=== PATIENT | female | born 1970 | race Asian ===

== ENCOUNTER 2021-02-23 22:27 | Emergency (ER) | payer OTHER ==
[~2021-02-23] VITALS: Ht 157.5 cm; Wt 55.0 kg
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
--- NOTE | 2021-02-23 22:55 | NUR ---
PT PLACED ON L2K BY ABDI
[2021-02-23] MEDS ORDERED: PLEASE ENTER ALLERGIES MC SCH (23:00)
[2021-02-23] MEDS ORDERED: LORazepam 1MG TABLET PO ONE (23:00)
[2021-02-23 23:18] LABS: AMPHETAMINE SCREEN, URINE Negative (Negative); BARBITURATE SCREEN, URINE Negative (Negative); BENZODIAZEPINE SCREEN, URINE Negative (Negative); CANNABINOID SCREEN, URINE Negative (Negative); COCAINE SCREEN, URINE Negative (Negative); METHADONE SCREEN, URINE Negative (Negative); OPIATE SCREEN, URINE Negative (Negative)
[2021-02-23 23:27] LABS: BASOPHILS % (AUTO) 1 % (0-1); EOSINOPHILS % (AUTO) 1 % (1-7); LYMPHOCYTES % (AUTO) 15 % (22-44); MEAN CORPUSCULAR HEMOGLOBIN 32.7 pg (27.0-34.8); MEAN CORPUSCULAR HGB CONC 35.5 g/dL (32.4-35.8); MEAN PLATELET VOLUME 6.7 fL (7.4-10.4); MONOCYTES % (AUTO) 9 % (2-9); NEUTROPHILS % (AUTO) 75 % (42-75); PLATELET COUNT 311 x10^3/uL (130-400); RED BLOOD COUNT 4.63 x10^6/uL (3.82-5.3); RED CELL DISTRIBUTION WIDTH 13.7 % (9.6-15.2)
[2021-02-23 23:33] LABS: ALBUMIN 3.9 g/dL (3.4-5.0); ANION GAP 8 mmol/L (5-15); CALCIUM 9.3 mg/dL (8.5-10.1); CHLORIDE 104 mmol/L (98-107)
[2021-02-23 23:34] LABS: SALICYLATE LEVEL < 1.7 mg/dL (2.8-20.0)
[2021-02-23 23:45] LABS: ALANINE AMINOTRANSFERASE 22 U/L (12-78); ALKALINE PHOSPHATASE 49 U/L (45-117); CREATININE 0.84 mg/dL (0.55-1.02); TOTAL PROTEIN 7.8 g/dL (6.4-8.2)
[2021-02-23 23:58] LABS: FREE T4 (FREE THYROXINE) 1.16 ng/dL (0.76-1.46)
--- NOTE | 2021-02-24 | NUR ---
PT SUPINE ON GURNEY, RESTIGN CALMLY WITH EYES CLOSED. NADN. SAFETY PRECAUTIONS IN PLACE, SITTER IN VIEW.
[2021-02-24] MEDS ORDERED: LORazepam 1MG TABLET ONE (00:31)
[2021-02-24] MEDS ORDERED: ZIPRASIDONE 20 MG INJ IM ONE ×2 (00:46→01:00)
[2021-02-24] MEDS ORDERED: ZIPRASIDONE 20MG CAPSULE PO SCH (01:00)
--- NOTE | 2021-02-24 01:00 | NUR ---
PT PROVIDED WATER PER REQUEST. SITTING UPRIGHT ON DAISY JUAREZ. SAFETY PRECAUTIONS IN PLACE, SITTER IN VIEW.
--- NOTE | 2021-02-24 01:24 | NUR ---
REFERRED TO [facility]. AWAITING CALL BACK.
--- NOTE | 2021-02-24 01:35 | NUR ---
DECLINED BY [facility]. PACKET FAXED OUT TO [facility], [facility], [facility], & [facility].
--- NOTE | 2021-02-24 01:52 | NUR ---
TP: ANA FROM [facility] CALLED TO ACCEPT PT. DR DIAZ WILL BE ACCEPTING
[2021-02-24 02:33] VITALS: BP 138/72
--- NOTE | 2021-02-24 03:09 | NUR ---
PT ACCEPTED AT [facility]. REPORT GIVEN TO LANRE BREEN. ACCEPTING PHYSICIAN DR. CANTOR.
== END 2021-02-24 03:55 ==
LOC: ED 23:00
DX: T14.91XA Suicide attempt, initial encounter (principal); F23 Brief psychotic disorder; Y93.39 Activity, other involving climbing, rappelling and jumping off; Y92.89 Other specified places as the place of occurrence of the external cause; Y99.8 Other external cause status
CPT/HCPCS: 36415; 80053; 80299; 80307; 80320; 80329; 84439; 84443; 84703; 85025; 99285; G0480